=== PATIENT | male | born 1940 | race Asian ===

== ENCOUNTER 2021-11-15 12:00 | Emergency (ER) | payer MEDICARE, OTHER ==
[~2021-11-15] VITALS: Ht 157.5 cm; Wt 41.6 kg
[2021-11-15 12:41] VITALS: BP 108/76
[2021-11-15 13:20] LABS: ABG CARBOXYHEMOGLOBIN 0.3 % (0.0-1.5); ABG HCO3 27.9 mmol/L (22.0-26.0); ABG METHEMOGLOBIN 0.1 % (0.0-1.5); ABG OXYGEN CONTENT 15.9 mL/dL (15.0-23.0); ABG OXYGEN SATURATION 96.5 % (95.0-98.0); ABG OXYHEMOGLOBIN 96.1 % (94.0-100.0); ABG PCO2 36 mmHg (35-45); ABG PH 7.493 (7.35-7.450); ABG TOTAL HEMOGLOBIN 11.7 G/dL (12.0-18.0); PO2, ARTERIAL BG 80.2 mmHg (71.0-79.0); SOURCE, BLOOD GAS ARTERIAL; TEMPERATURE, FAHRENHEIT, BG 97.5 FAHREN (96.0-98.6)
[2021-11-15 13:22] LABS: SITE, BLOOD GAS RT RADIAL
[2021-11-15 13:23] LABS: ABG A-A DIFF O2 26.3 mmHg (10-20.0); O2 DEVICE,BLOOD GAS ROOM AIR (ROOM AIR)
== END 2021-11-15 14:22 | disposition home or self-care (01) ==
LOC: EMS 12:03
DX: I73.00 Raynaud's syndrome without gangrene (principal); E78.00 Pure hypercholesterolemia, unspecified; I12.9 Hypertensive chronic kidney disease with stage 1 through stage 4 chronic kidney disease, or unspecified chronic kidney disease; N18.9 Chronic kidney disease, unspecified; I48.91 Unspecified atrial fibrillation; Z86.73 Personal history of transient ischemic attack (TIA), and cerebral infarction without residual deficits; Z82.0 Family history of epilepsy and other diseases of the nervous system
CPT/HCPCS: 36600; 82805; 99283